=== PATIENT | male | born 1950 | race Caucasian/White ===

== ENCOUNTER 2017-10-23 21:26 | Emergency (ER) | payer MEDICARE, OTHER ==
[~2017-10-23] VITALS: Ht 175.3 cm; Wt 103.4 kg
[2017-10-23] MEDS ORDERED: ASPIR 8181 MG PO (21:37)
[2017-10-23] MEDS ORDERED: SIMVASTATIN40 MG PO (21:37)
--- NOTE | 2017-10-24 07:26 | EKG ---
[facility] [address] [address] [place] [address] Signed Normal sinus rhythm Nonspecific ST and T wave abnormality Abnormal ECG No previous ECGs available Confirmed by AMRIT TRAORE MD ([id number] on 10/24/2017 7:25:43 AM Electronically Signed By: AMRIT TRAORE MD 10/24/17 0726 PATIENT NAME: BHARGAV ARCE Electrocardiogram DATE OF : 48 PHYSICIAN: AMRIT TRAORE MD REPORT #: [id number] REPORT IS CONFIDENTIAL AND NOT TO BE RELEASED WITHOUT AUTHORIZATION
== END 2017-10-24 00:02 | disposition home or self-care (01) ==
LOC: ED 21:26
DX: R07.2 Precordial pain (principal); K21.9 Gastro-esophageal reflux disease without esophagitis; Z87.891 Personal history of nicotine dependence; Z88.8 Allergy status to other drugs, medicaments and biological substances; Z79.899 Other long term (current) drug therapy; Z79.82 Long term (current) use of aspirin
CPT/HCPCS: 71045; 80053; 84484; 85025; 93005; 93010; 96374; 96375; 99284; J2270; J2405; J7030